=== PATIENT | female | born 1955 | race Caucasian/White ===

== ENCOUNTER 2019-03-07 16:03 | Emergency (ER) | payer BC, MEDICAID ==
[~2019-03-07] VITALS: Ht 177.8 cm; Wt 66.7 kg
[2019-03-07 16:08] VITALS: BP 125/91
--- NOTE | 2019-03-07 16:17 | NUR ---
ED Nurse Note: Patient walked into ED due to her right breast bleeding from her surgical incision started an hour prior to arrival to ED. Patient reports surgery: mastopexy on 02/20/19 at [facility]. Patient is alert awake x4 ambulatory, breathing unlabored and even.
--- NOTE | 2019-03-07 16:50 | NUR ---
ED Nurse Note: blood drawn and sent to lab. family at bedside
[2019-03-07 16:51] VITALS: BP 115/84
[2019-03-07] MEDS ORDERED: COUMADIN7.5 MG ORAL (16:52)
[2019-03-07] MEDS ORDERED: CARVEDILOL12.5 MG ORAL (16:52)
[2019-03-07] MEDS ORDERED: LOVENOX10 M1 SUBQ (16:52)
[2019-03-07] MEDS ORDERED: COUMADIN5 MG ORAL (16:52)
[2019-03-07] MEDS ORDERED: LISINOPRIL5 MG ORAL (16:52)
--- NOTE | 2019-03-07 17:04 | Emergency Room Report ---
History of Present Illness General Chief Complaint: General Complaint Source: Patient Present Illness HPI Patient presents with reports of bleeding from her surgical site Patient reports in mid November she had initial surgery at [facility] Patient had rupture of her breast implant Later on required surgery on both sides Approximately 3 weeks ago patient was having complications and had a revision Reports that she had ultrasound as well showing significant hematoma Patient was seen today by her surgical endoscopist She reports that there was some manipulation of the area, there was initially discussion regarding placement of a drain next week however after evaluating the area It was reported that they would not require the drain Patient reports that about an hour prior to arrival there was blood that was expressed from the surgical site dark and black in appearance it has since stopped and resolved and the area looks much improved Denies any chest pain or shortness of breath denies any focal weakness Allergies: Coded Allergies: No Known Allergies (Unverified , 03/07/19) Patient History Past Medical History: see triage record Reviewed Nursing Documentation: PMH: Agreed; PSxH: Agreed Nursing Documentation-PMH Past Medical History: No History, Except For Review of Systems All Other Systems: negative except mentioned in HPI Physical Exam Vital Signs Date Time Temp Pulse Resp B/P (MAP) Pulse Ox O2 Delivery O2 Flow Rate FiO2 03/07/19 16:08 97.9 92 18 125/91 (102) 96 Room Air Sp02 EP Interpretation: reviewed, normal General Appearance: well appearing, no apparent distress Head: normocephalic, atraumatic Eyes: bilateral eye PERRL, bilateral eye EOMI ENT: hearing grossly normal, normal pharynx Neck: supple Respiratory: lungs clear Cardiovascular #1: regular rate, rhythm Gastrointestinal: non tender, soft, other - Multiple areas of bruising consistent with her Lovenox injections Genitourinary: no CVA tenderness Musculoskeletal: normal inspection Neurologic: alert, oriented x3 Skin: other - Evaluation of the right breast with female nurse at bedside reveals evidence of a surgical site midline from the areole area downward, there is a scab formation in that region, there is a palpable firmness just behind this likely consistent with hematoma, mild bruising as well, no active signs of expanding hematoma no obvious active signs of bleeding Lymphatic: no adenopathy Medical Decision Making Diagnostic Impression: Primary Impression: Wound dehiscence Additional Impressions: Hematoma Visit for wound check ER Course Patient also reports that she has been having her Coumadin levels adjusted Patient had mitral valve prolapse and was initially taken off the blood thinners including Coumadin and is now back on them her INR is still subtherapeutic at 1.7 Upon initial arrival patient had the area examined and evaluated no obvious evidence of bleeding I did asked to obtain information and contact the patient' s specialist however patient reports that they are not available at this time After initial blood work all within normal limits patient's INR is 1.4 she is continuing to follow closely with the Coumadin clinic for this Patient had antibiotic ointment placed on a Xeroform dressing and had Steri- Strips across the incision site This is preventing any signs of hemorrhage or bleeding patient has tolerated well . no obvious signs of bleeding at this time Labs Test 03/07/19 16:42 White Blood Count 6.0 K/UL (4.8-10.8) Red Blood Count 3.98 M/UL (4.20-5.40) Hemoglobin 12.5 G/DL (12.0-16.0) Hematocrit 37.6 % (37.0-47.0) Mean Corpuscular Volume 94 FL (80-99) Mean Corpuscular Hemoglobin 31.4 PG (27.0-31.0) Mean Corpuscular Hemoglobin Concent 33.2 G/DL (32.0-36.0) Red Cell Distribution Width 11.0 % (11.6-14.8) Platelet Count 274 K/UL (150-450) Mean Platelet Volume 7.3 FL (6.5-10.1) Neutrophils (%) (Auto) 53.5 % (45.0-75.0) Lymphocytes (%) (Auto) 33.3 % (20.0-45.0) Monocytes (%) (Auto) 8.8 % (1.0-10.0) Eosinophils (%) (Auto) 3.1 % (0.0-3.0) Basophils (%) (Auto) 1.2 % (0.0-2.0) Prothrombin Time 14.7 SEC (9.30-11.50) Prothromb Time International Ratio 1.4 (0.9-1.1) Activated Partial Thromboplast Time 38 SEC (23-33) Sodium Level 135 MMOL/L (136-145) Potassium Level 4.1 MMOL/L (3.5-5.1) Chloride Level 100 MMOL/L (98-107) Carbon Dioxide Level 25 MMOL/L (21-32) Anion Gap 10 mmol/L (5-15) Blood Urea Nitrogen 9 mg/dL (7-18) Creatinine 0.6 MG/DL (0.55-1.30) Estimat Glomerular Filtration Rate > 60 mL/min (>60) Glucose Level 95 MG/DL (74-106) Calcium Level 9.5 MG/DL (8.5-10.1) Total Bilirubin 0.4 MG/DL (0.2-1.0) Aspartate Amino Transf (AST/SGOT) 39 U/L (15-37) Alanine Aminotransferase (ALT/SGPT) 35 U/L (12-78) Alkaline Phosphatase 55 U/L (46-116) Total Protein 7.1 G/DL (6.4-8.2) Albumin 4.0 G/DL (3.4-5.0) Globulin 3.1 g/dL Albumin/Globulin Ratio 1.3 (1.0-2.7) Rhythm Strip Diag. Results EP Interpretation: yes Rate: 80 Rhythm: NSR, no PVC's, no ectopy Last Vital Signs Date Time Temp Pulse Resp B/P (MAP) Pulse Ox O2 Delivery O2 Flow Rate FiO2 03/07/19 16:51 97.9 88 20 115/84 100 Room Air Status: improved Disposition: HOME, SELF-CARE Condition: Improved Referrals: MICHELLE HALL,REFERRING (PCP) Additional Instructions: Patient is provided with the discharge instructions notified to follow up with primary doctor in the next 2-3 days otherwise return to the er with any worsening symptoms. Please note that this report is being documented using [employer] technology. This can lead to erroneous entry secondary to incorrect interpretation by the dictating instrument. Lefty Pham DO Mar 07, 2019 17:04
[2019-03-07 17:07] LABS: BASOPHILS % (AUTO) 1.2 % (0.0-2.0); EOSINOPHILS % (AUTO) 3.1 % (0.0-3.0); HEMATOCRIT 37.6 % (37.0-47.0); HEMOGLOBIN 12.5 G/DL (12.0-16.0); LYMPHOCYTES % (AUTO) 33.3 % (20.0-45.0); MEAN CORPUSCULAR VOLUME 94 FL (80-99); MONOCYTES % (AUTO) 8.8 % (1.0-10.0); NEUTROPHILS % (AUTO) 53.5 % (45.0-75.0); PLATELET COUNT 274 K/UL (150-450); RED BLOOD COUNT 3.98 M/UL (4.20-5.40)
[2019-03-07 17:12] LABS: ANION GAP 10 mmol/L (5-15); BLOOD UREA NITROGEN 9 mg/dL (7-18); CALCIUM 9.5 MG/DL (8.5-10.1); CARBON DIOXIDE 25 MMOL/L (21-32); CHLORIDE 100 MMOL/L (98-107); CREATININE 0.6 MG/DL (0.55-1.30); POTASSIUM 4.1 MMOL/L (3.5-5.1); SODIUM 135 MMOL/L (136-145)
[2019-03-07 17:14] LABS: INR 1.4 (0.9-1.1)
[2019-03-07 17:16] LABS: ALANINE AMINOTRANSFERASE 35 U/L (12-78); ALBUMIN/GLOBULIN RATIO 1.3 (1.0-2.7); ALKALINE PHOSPHATASE 55 U/L (46-116); ASPARTATE AMINO TRANSFERASE 39 U/L (15-37); BILIRUBIN,TOTAL 0.4 MG/DL (0.2-1.0)
[2019-03-07] MEDS ORDERED: Bacitracin Oint UD TOPIC ONE (17:30)
[2019-03-07 17:52] VITALS: BP 115/84
--- NOTE | 2019-03-07 17:58 | NUR ---
ER DISCHARGE NOTE: Patient is cleared to be discharged per RAJAN ORTIZ, pt is aox4, on room air, with stable vital signs. pt was given dc and prescription instructions, pt was able to verbalize understanding, pt id band removed without complications. pt is able to ambulate with steady gait. pt took all belongings.
== END 2019-03-07 17:59 | disposition home or self-care (01) ==
LOC: EMR 16:39
DX: T81.30XA Disruption of wound, unspecified, initial encounter (principal); N64.89 Other specified disorders of breast
CPT/HCPCS: 36415; 80053; 85025; 85610; 85730; 99284